=== PATIENT | male | born 2000 | race Caucasian/White ===

== ENCOUNTER 2025-01-11 14:47 | Emergency (ER) | payer MEDICAID, SELFPAY ==
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
[2025-01-11 15:15] VITALS: BP 127/95; PULSE 78; RESP 20; TEMP 36.8; O2SAT 100
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
== END 2025-01-11 17:21 | disposition home or self-care (01) ==
LOC: SERX 17:33
PROVIDERS: Emergency Provider Emergency Medicine
DX: S02.2XXA Fracture of nasal bones, initial encounter for closed fracture (principal); S00.83XA Contusion of other part of head, initial encounter; S93.602A Unspecified sprain of left foot, initial encounter; S93.601A Unspecified sprain of right foot, initial encounter; S80.212A Abrasion, left knee, initial encounter; S80.211A Abrasion, right knee, initial encounter; Y04.0XXA Assault by unarmed brawl or fight, initial encounter
CPT/HCPCS: 70450; 70486; 73630; 99284

== ENCOUNTER 2025-04-21 02:48 | Emergency (ER) | payer MEDICAID, SELFPAY ==
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
== END 2025-04-21 03:24 | disposition left against medical advice (07) ==
PROVIDERS: Emergency Provider Emergency Medicine
DX: Z53.21 Procedure and treatment not carried out due to patient leaving prior to being seen by health care provider (principal)
CPT/HCPCS: 99281